=== PATIENT | male | born 1970 | race Caucasian/White ===

== ENCOUNTER 2021-04-02 11:08 | Emergency (ER) | payer BC ==
[~2021-04-02] VITALS: Ht 177.8 cm; Wt 78.0 kg
[2021-04-02 12:29] LABS: APPEARANCE,URINE Clear (CLEAR); BILIRUBIN,URINE Negative (NEGATIVE); COLOR,URINE Yellow (YELLOW); GLUCOSE, URINE (UA) Negative (NEGATIVE); KETONES,URINE Negative (NEGATIVE); LEUKOCYTE ESTERASE ,URINE Trace (NEGATIVE); NITRATE,URINE Negative (NEGATIVE); OCCULT BLOOD,URINE Large (NEGATIVE); PH,URINE 5.5 (5.0-8.0); PROTEIN,URINE Trace mg/dL (NEGATIVE); UROBILINOGEN,URINE 0.2 mg/dL (0.2-1.0)
[2021-04-02] MEDS ORDERED: FAMOTIDINE 20MG VIAL IV ONE (12:30)
[2021-04-02] MEDS ORDERED: 0.9%NACL 1000ML 1,000 ML IV ONE (12:30)
[2021-04-02] MEDS ORDERED: DICYCLOMINE 20MG (10MG/ML) AMP IM ONE (12:30)
[2021-04-02] MEDS ORDERED: MAG/ALUM/SIMETH 30 ML UDCUP PO ONE (12:30)
[2021-04-02] MEDS ORDERED: KETOROLAC 15MG/ML VIAL (15MG/ML) IV ONE (12:30)
[2021-04-02] MEDS ORDERED: ONDANSETRON 4MG INJ IVP ONE (12:30)
[2021-04-02 12:35] LABS: BASOPHILS % (AUTO) 0.5 % (0.0-5.0); EOSINOPHILS % (AUTO) 1.2 % (0.0-8.0); HEMATOCRIT 39.1 % (42-54); LYMPHOCYTES % (AUTO) 17.1 % (21.0-51.0); MEAN CORPUSCULAR HEMOGLOBIN 28.7 pg (27.0-33.0); MEAN CORPUSCULAR HGB CONC 33.5 g/dL (32.0-36.0); MEAN CORPUSCULAR VOLUME 85.6 fL (79-99); MONOCYTES % (AUTO) 10.1 % (3.0-13.0); NEUTROPHILS % (AUTO) 70.6 % (40.0-77.0); PLATELET COUNT (AUTO) 187 K/uL (130-400); RED BLOOD CELL COUNT(AUTO) 4.57 MIL/uL (4.50-6.20); RED CELL DISTRIBUTION WIDTH 12.9 % (11.0-15.5); WHITE BLOOD COUNT (AUTO) 8.2 K/uL (4.8-10.8)
[2021-04-02 12:40] LABS: BACTERIA,URINE Rare /HPF (None Seen); SQUAMOUS EPITHELIAL CELL,UR Rare /HPF (0-2); WBC,URINE 0-1 /HPF (0-1)
[2021-04-02 12:56] LABS: BILIRUBIN,TOTAL 0.7 mg/dL (0.2-1.0); CREATININE 1.1 mg/dL (0.5-1.5); POTASSIUM 3.7 mmol/L (3.5-5.1); TOTAL PROTEIN, SERUM 6.9 g/dL (6.0-8.3)
[2021-04-02] MEDS ORDERED: IOHEXOL-350 75 ML VIAL IV ONE (13:35)
[2021-04-02] MEDS ORDERED: MORPHINE 2 MG SYG IM ONE (14:30)
[2021-04-02] MEDS ORDERED: TAMS-1 PO (14:45)
[2021-04-02] MEDS ORDERED: ACET1TAB25 PO (14:45)
[2021-04-02] MEDS ORDERED: TAMSULOSIN HCL 0.4 MG CAP.ER.24H PO SCH (15:00)
[2021-04-02 15:35] VITALS: BP 124/78
== END 2021-04-02 15:37 | disposition home or self-care (01) ==
LOC: ICE 11:08 → EDH 15:37
DX: N20.0 Calculus of kidney (principal); K59.00 Constipation, unspecified; J45.909 Unspecified asthma, uncomplicated; E78.00 Pure hypercholesterolemia, unspecified; F32.A Depression, unspecified; Z79.1 Long term (current) use of non-steroidal anti-inflammatories (NSAID); Z79.899 Other long term (current) drug therapy
CPT/HCPCS: 36415; 71045; 74177; 80053; 81001; 82150; 83690; 84484; 85025; 96361; 96372; 96374; 96375; 99284; J0500; J1885; J2405; J3490; J7030; Q9967